=== PATIENT | female | born 1945 | race Caucasian/White ===

== ENCOUNTER 2016-04-02 14:12 | Emergency (ER) | payer BC, OTHER ==
[2016-04-02 14:19] VITALS: BP 147/91
--- NOTE | 2016-04-02 15:54 | RAD ---
INDICATION: Right thumb injury. TECHNIQUE: 3 views of the right thumb were obtained. FINDINGS: There is soft tissue swelling present around the proximal and distal phalanges. There is dislocation of the interphalangeal joint. The distal phalanx is displaced anterior one shaft diameter and overriding the proximal phalanx. There is a small chip fracture of the anterolateral aspect of the base of the distal phalanx. The fracture fragment measures 1.5 mm. IMPRESSION: DISLOCATION OF THE INTERPHALANGEAL JOINT OF THE THUMB AND SMALL CHIP FRACTURE OF THE DISTAL PHALANX.
--- NOTE | 2016-04-02 15:55 | ED ---
Upper Extremity Pain - HPI Summary HPI Summary: 70 F presents with right thumb and rib pain. She states she fell onto her thumb and bumped the side of her face. She denies any headache, vomiting, blurry vision, or LOC. She denies being on blood thinners. She states the fall was mechanical and denies any chest pain or SOB. She denies any numbness or tingling. She says she is unable to move her thumb at the IP joint. - History of Current Complaint Chief Complaint: EDGeneral Stated Complaint: THUMB INJURY, FACIAL INJURY, RIB PAIN Time Seen by Provider: 04/02/16 15:01 - Allergies/Home Medications Allergies/Adverse Reactions: Allergies Allergy/AdvReac Type Severity Reaction Status Date / Time environmental Allergy Runny Nose Uncoded 04/02/16 14:15 PMH/Surg Hx/FS Hx/Imm Hx Endocrine/Hematology History: Denies: Hx Diabetes Cardiovascular History: Denies: Hx Hypertension, Hx Pacemaker/ICD History: Denies: Hx Renal Disease Musculoskeletal History: Denies: Hx Rheumatoid Arthritis, Hx Osteoporosis - OSTEOPENIA Sensory History: Reports: Hx Cataracts - BILATERAL, Hx Contacts or Glasses - GLASSES, Hx Hearing Aid - WONT WEAR THEM IN Opthamlomology History: Reports: Hx Cataracts - BILATERAL, Hx Contacts or Glasses - GLASSES Psychiatric History: Denies: Hx Panic Disorder - Cancer History Cancer Type, 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. APPENDECTOMY Hx Anesthesia Reactions: No Infectious Disease History: No Infectious Disease History: Denies: Traveled Outside the [place] in Last 30 Days - Family History Known Family History: Positive: Hypertension - Social History Alcohol Use: Weekly Alcohol Amount: 4 glasses wine weekly Substance Use Type: Reports: None Smoking Status (MU): Former Smoker Type: Cigarettes Amount Used/How Often: 1 PPD X 14 YEARS OFF AND ON Length of Time of Smoking/Using Tobacco: quit 32 years ago Review of Systems Negative: Fever Positive: Other - right sided rib pain. Negative: Chest Pain Negative: Shortness Of Breath Positive: Myalgia - right thumb pain Positive: Other - abrasion near right eye All Other Systems Reviewed And Are Negative: Yes Physical Exam Triage Information Reviewed: Yes Vital Signs On Initial Exam: Initial Vitals Temp Pulse Resp BP Pulse Ox 97.9 F 84 18 147/91 100 04/02/16 14:15 04/02/16 14:15 04/02/16 14:15 04/02/16 14:15 04/02/16 14:15 Vital Signs Reviewed: Yes Appearance: Positive: Well-Appearing Skin: Positive: Warm, Dry Head/Face: Positive: Normal Head/Face Inspection, Other - no step off, raccoon eyes, eubanks sign, small 1/2 cm abrasion near right eyebrow Eyes: Positive: Normal, EOMI, LEONIDAS, Conjunctiva Clear ENT: Positive: Normal ENT inspection, Pharynx normal, TMs normal Respiratory/Lung Sounds: Positive: Clear to Auscultation, Breath Sounds Present , Other - tenderness to lateral aspect of right ribs Cardiovascular: Positive: Normal, RRR Musculoskeletal: Positive: Strength/ROM Intact - of all fingers right hand except thumb, wrist, Other - good pulses, no ROM at IP joint of right thumb, capillary refill <2secs, wrist nontender Neurological: Positive: Sensory/Motor Intact Procedures - Splinting Location: right thumb Hand-Made Type: orthoglass Splint: thumb spica Pre-Proc Neuro Vasc Exam: normal Post-Proc Neuro Vasc Exam: normal Diagnostics - Vital Signs Vital Signs Temp Pulse Resp BP Pulse Ox 04/02/16 14:15 97.9 F 84 18 147/91 100 - Laboratory Lab Statement: Any lab studies that have been ordered have been reviewed, and results considered in the medical decision making process. - Radiology ribs Xray Interpretation: No Acute Changes Radiology Interpretation Completed By: Radiologist finger Xray Interpretation: Positive (See Comments) - IMPRESSION: DISLOCATION OF THE INTERPHALANGEAL JOINT OF THE THUMB AND SMALL CHIP FRACTURE OF THE DISTAL PHALANX. Radiology Interpretation Completed By: Radiologist Course/Dx - Course Course Of Treatment: 70 F presents with fall with abrasion to right eye, right rib pain, and right thumb pain, unable to move right thumb at IP joint and visible swelling there, right rib pain tenderness to palpation, neuro exam normal and no raccon eyes or step off, discussed possible getting CT due to age but patient declined will return if develops nausea and vomiting, xray rib normal, xray finger showed dislocation and avulsion fracture, relocated finger and placed in thumb spica, will have follow up with ortho, patient agrees with plan - Diagnoses Differential Diagnosis/HQI/PQRI: Positive: Contusion, Fracture (Closed), Strain , Sprain Provider Diagnoses: Fall, Abrasion of right eyebrow, Contusion of rib on right side, Dislocation of right thumb Discharge - Discharge Plan Condition: Good Disposition: HOME Patient Education Materials: Rib Contusion (ED), Finger Dislocation (ED) Referrals: Rupinder Lin MD [Primary Care Provider] - Rosalio Bettencourt MD [Medical Doctor] - Additional Instructions: Take deep breathe throughout the day to prevent pneumonia Keep splint on area and keep dry Call ortho office for appointment to set up appointment for follow up Use ibuprofen or Tylenol for pain every 6 hours Ice, elevate Return to ED if develop numbness or tingling or any new or worsening symptoms
--- NOTE | 2016-04-02 15:56 | RAD ---
INDICATION: Right rib injury. TECHNIQUE: 4 views of the right ribs were obtained. FINDINGS: No fracture or significant focal osseous abnormality is seen. IMPRESSION: NO EVIDENCE FOR FRACTURE.
== END 2016-04-02 16:37 | disposition home or self-care (01) ==
LOC: ED 14:12
DX: S63.104A Unspecified dislocation of right thumb, initial encounter (principal); R07.81 Pleurodynia; S20.211A Contusion of right front wall of thorax, initial encounter; S00.211A Abrasion of right eyelid and periocular area, initial encounter; Z87.891 Personal history of nicotine dependence; W19.XXXA Unspecified fall, initial encounter; Y93.9 Activity, unspecified; Y92.9 Unspecified place or not applicable; Y99.9 Unspecified external cause status
CPT/HCPCS: 99282

== ENCOUNTER 2016-05-02 12:11 | Day surgery (SDC) | payer BC ==
[2016-05-02] MEDS ORDERED: Bupivacaine 0.5% SDV PF* 30 ML VIAL ONE ×2 (13:27→14:45)
[2016-05-02] MEDS ORDERED: ceFAZolin 2 GM PREMIX (*) 2 GM/50 ML BAG IVPB ONE (13:32)
[2016-05-02] MEDS ORDERED: Bupivacaine 0.5% W/EPI SDV* 30 ML VIAL ONE (14:41)
[2016-05-02 16:21] VITALS: BP 120/81
--- NOTE | 2016-05-03 11:23 | OP ---
OPERATIVE REPORT: DATE OF OPERATION: 05/02/16 DATE OF : 47 SURGEON: Rosalio Bettencourt MD FIBERGLASS DOWEL DRAWING OPERATOR: JOSE E Jerry ANESTHESIOLOGIST: None. ANESTHESIA: Local only with 0.5% plain Marcaine. PRE-OP DIAGNOSIS: Right thumb interphalangeal joint dislocation with recurrent subluxation after a closed reduction maneuver 3 weeks ago. POST-OP DIAGNOSIS: Right thumb interphalangeal joint dislocation with recurrent subluxation after a closed reduction maneuver 3 weeks ago. OPERATIVE PROCEDURE: Right thumb interphalangeal joint dislocation, open reduction and percutaneous pinning. ESTIMATED BLOOD LOSS: 5 mL. COMPLICATIONS: None. INDICATIONS: Rosa is a 70-year-old female. Three weeks ago, she fell and dislocated the right thumb interphalangeal joint. It was a fracture dislocation. She was seen in the emergency room and a cathleen sed reduction maneuver was nicely performed. A week later in the office, the joint looked reasonabl y congruent. When I saw her 2 weeks after that, it looked there was some repeat subluxation and dors al gapping. We had talked about treatment options, risks and benefits, and she elected to proceed w ith an open reduction and pinning of the joint. FINDINGS: The interphalangeal joint was reducible, but significant dorsal gapping occurred with att empts of flexion at the joint. DESCRIPTION OF PROCEDURE: Rosa was seen in the preoperative holding area and the correct site and si de were marked. We had a time-out and I performed a right thumb digital block with 0.25% Marcaine. We then came back to the operating room, where the arm was prepped and draped in the usual fashion and a formal time-out was performed. I went ahead and placed a Tourni-Cot on the right thumb. Following this, I made a dorsal H-type inc ision over the interphalangeal joint. Full-thickness flaps were raised off the paratenon of the ext ensor tendon. I identified radially and ulnarly the intervals between the terminal extensor tendon and the collateral ligaments. The capsule was excised in its region. There was a dorsal wafer of lisa ne, just dorsal to the metacarpal head. This was excised as well. I used a rongeur to remove as mu ch dorsal interposed soft tissues I could from the joint. I used a [place] to try to push out and rem ove any interposed soft tissue on the volar aspect of the joint. At this point, I went ahead and br ought in the C-arm as the joint looked nicely reduced. In full extension, I could nicely reduce the joint, but when I made any attempt to flex the joint, significant dorsal gapping occurred. There wa s a little bit of fracture fragment on the volar base of the distal phalanx. At this point, I went ahead and did a little bit more soft tissue release, releasing just a bit of the collateral ligament s and then using the [place] to really free up and release some of the volar soft tissue working throu gh the joint. This took a fair amount of work but ultimately I was able to get the joint nicely red uced and keep it stable through a full flexion arch. Due to the extension release required for thi s, there is some instability in the joint, so I went ahead and reduced the joint and then pinned it and the reduced position with two 0.045 transarticular K-wires started in the fingertip. The reduct ion looked nice and the pins looked very nice. I went ahead and irrigated the wound. The pins were bent and clipped in standard fashion. The skin was closed with 5-0 nylon suture. The wound was dr essed with X[place]hola, 4x4, 1-inch Anna Marie, and then a thumb spica splint was placed outpass the end of the thumb, protecting the 2 pins. She was then taken to recovery room in stable condition. [id number]/[facility] #: [id number]
--- NOTE | 2016-05-04 12:09 | RAD ---
CPT II Codes: 6045F INDICATION: Imaging provided for percutaneous pinning of the right thumb TECHNIQUE: Intraoperative fluoroscopy was provided during percutaneous pinning of the right thumb interphalangeal joint. FINDINGS: 3 spot films depict anatomic alignment of 2 percutaneous pins spanning the right thumb phalanges. Fluoroscopy time: 1 minute and 25 seconds IMPRESSION: As above.
== END 2016-05-02 16:14 | disposition home or self-care (01) ==
LOC: OREAST 12:11
PROVIDERS: ATTEND Orthopaedic Surgery Hand Surgery
DX: S63.12 Subluxation and dislocation of interphalangeal joint of thumb (principal); Z87.891 Personal history of nicotine dependence; Y92.9 Unspecified place or not applicable; W19.XXXD Unspecified fall, subsequent encounter
CPT/HCPCS: 76000; C1776; J0690